=== PATIENT | female | born 1995 | race Caucasian/White ===

== ENCOUNTER 2020-09-17 10:07 | Inpatient (IN) | payer OTHER ==
--- OUTSIDE RECORDS SUMMARY | 2020-09-17 11:00 | XMS REPORT | Continuity of Care Document ---
:1995 Author Organization [facility] t Address [address] [place] [address] Care Team Providers Name Role Phone Unavailable Unavailable Unavailable Payers Payer Name Policy Type Policy Number Effective Date Expiration Date S ource Problems This patient has no known problems. Allergies, Adverse Reactions, Alerts Allergy Allergy Status Severity Reaction(s) Onset Inactive Treating Comm ents Source Name Type Date Date Clinician No Known DA Active U 2019-09 [facility] [place] Medications This patient has no known medications. Procedures This patient has no known procedures. Results Test Description Test Time Test Comments Results Result Comments Source GLUBED 2020-09-01 00:18:00 Test Item Value Reference Range Interpretation Comme nts GLUBED (test code = GLUBED) 92 mg/dL 65-110 N [id number] 12:27:00 Test Item Value Reference Range Interpretation Comments GLUBED (test code = GLUBED) 91 mg/dL 65-110 N [id number] 12:27:00 Test Item Value Reference Range Interpretation Comments GLUBED (test code = GLUBED) 123 mg/dL 65-110 H [id number] 02:01:00 Test Item Value Reference Range Interpretation Comments GLUBED (test code = GLUBED) 128 mg/dL 65-110 H COVID 19 Asymptomatic IH [id number] 17:59:00 Test Item Value Reference Range Interpretation Comments COVID 19 NEGATIVE NEGATIVE This test has b een Asymptomatic IH AG authorize d only for the (test code = detection ofpro teins from COVNONPUIAG) SARS-CoV-2, not for any other viruses orpathogens. N egative results should be treated as presumptive andconfirmed wi th a molecular assay , if necessary for patientmanageme nt. Negative result s do not rule out COVID- 19 andshould not b e used as the sole basis for treatment orpat ient management deci sions, including infec tion controldecision s. Negative result s should be considered i n thecontext of a patient's recent exposure s, history and thepresence of clinical signs and symptoms consis tent withCOVID-19. T his test has not been FD A cleared or approved; th e test hasbeen authori karishma by FDA under an Emerge ncy Use Authorization(E UA) for use by laborato lila certified under the CLIA thatmeet the re quirements to perform mode rate, high or waivedcomple xity tests. This soco t is authorized for use at thePoint of Car e (POC), i.e., in patien t care settingsoperati ng under a CLIA Certificat e of Waiver, Certifi pk ofCompliance, o r Certificate of Accreditation. This test is only authori zed for the duration of thedeclaration that circumstances e xist justifying theauthorizatio n of emergency use o f in vitro diagnostic test sfor detection and/o r diagnosis of CO VID-19 under Hxpslye08 4(b)(1) of the Act, 21 U.S .C. 360bbb-3(b)(1), unless theauthorizatio n is terminated or r evoked sooner. AG HEPATITIS B [id number] 17:48:00 Test Item Value Reference Range Interpretation Comments AG HEPATITIS B SURFACE (test code NONREACTIVE NONREACTIVE = HBSAG) IS CONSENT FORM SIGNED FOR HIV TESTING? YAB HEPATITIS C [id number] 17:48:00 Test Item Value Reference Range Interpretation Comments AB HEPATITIS C (test code = NONREACTIVE NONREACTIVE HCVAB) SIGNAL TO CUTOFF (test code = 0.06 <0.80 N CUTOFF) IS CONSENT FORM SIGNED FOR HIV TESTING? YAB [id number] 17:48:00 Test Item Value Reference Range Interpretation Comments AB TREPONEMA (test code = TREPAB) NONREACTIVE NONREACTIVE IS CONSENT FORM SIGNED FOR HIV TESTING? YAB HIV 1 17:48:00 Test Item Value Reference Range Interpretation Comments AB HIV 1 2 (test NONREACTIVE NONREACTIVE Done by Jeanna Cunningham code = [id number]) 4th Gen HIV Ag/Ab Combo Screen IS CONSENT FORM SIGNED FOR HIV TESTING? YAG HEPATITIS B [id number] 17:21:00 Test Item Value Reference Range Interpretation Comments AG HEPATITIS B SURFACE (test code NONREACTIVE NONREACTIVE = HBSAG) IS CONSENT FORM SIGNED FOR HIV TESTING? YAB HEPATITIS C [id number] 17:21:00 Test Item Value Reference Range Interpretation Comments AB HEPATITIS C (test code = HCVAB) NONREACTIVE SIGNAL TO CUTOFF (test code = CUTOFF) <0.80 IS CONSENT FORM SIGNED FOR HIV TESTING? YAB [id number] 17:21:00 Test Item Value Reference Range Interpretation Comments AB TREPONEMA (test code = TREPAB) NONREACTIVE NONREACTIVE IS CONSENT FORM SIGNED FOR HIV TESTING? YAB HIV 1 17:21:00 Test Item Value Reference Range Interpretation Comments AB HIV 1 2 (test code = [id number]) NONREACTIVE IS CONSENT FORM SIGNED FOR HIV TESTING? YCOMPREHENSIVE METABOLIC [id number] 16:47:00 Test Item Value Reference Range Interpretation Comments SODIUM (test code = NA) 136 mEq/L 135-145 N POTASSIUM (test code = K) 3.7 mEq/L 3.5-5.0 N CHLORIDE (test code = CL) 103 mEq/L 100-115 N CARBON DIOXIDE (test code = CO2) 26 mEq/L 22-31 N ANION GAP (test code = GAP) 10.60 10-20 N GLUCOSE (test code = GLU) 153 mg/dL 65-110 H BLOOD UREA NITROGEN (test code = 9 mg/dL 7-18 N BUN) GLOMERULAR FILTRATION RATE (test 102 ml/min >60 N code = GFR) CREATININE (test code = CREAT) 0.7 mg/dL 0.5-1.0 N TOTAL PROTEIN (test code = PROT) 6.1 gm/dL 6.3-8.2 L ALBUMIN (test code = ALB) 2.5 gm/dL 3.4-4.8 L CALCIUM (test code = CA) 8.9 mg/dL 8.4-10.2 N BILIRUBIN TOTAL (test code = BILT) 0.2 mg/dL 0.2-1.0 N SGOT/AST (test code = AST) 9 units/L 15-37 L SGPT/ALT (test code = ALT) 15 units/L 12-78 N ALKALINE PHOSPHATASE TOTAL (test 86 units/L 46-116 N code = ALKP) UR PROTEIN/CREATININE [id number] 16:43:00 Test Item Value Reference Range Interpretation Comments UR PROTEIN RANDOM (test code = 51.4 mg/dL PROTU) UR CREATININE RANDOM (test 232.3 mg/dL code = CREATU) PROTEIN/CREATININE RATIO (test 220.0 mg/gcrea <200 H code = P/CRATIO) CBC W/AUTO [id number] 16:16:00 Test Item Value Reference Range Interpretation Comments WHITE BLOOD CELL (test code = WBC) 9.5 K/mm3 6.6-12.1 N RED BLOOD CELL (test code = RBC) 3.83 M/mm3 3.45-5.01 N HEMOGLOBIN (test code = HGB) 11.2 g/dL 10.7-13.9 N HEMATOCRIT (test code = HCT) 34.6 % 32.1-42.1 N MEAN CELL VOLUME (test code = MCV) 90 fL 84.1-94.8 N MEAN CELL HGB (test code = MCH) 29.2 pg 27-35 N MEAN CELL HGB CONCETRATION (test 32.4 gm/dL 32.2-34.1 N code = MCHC) RED CELL DISTRIBUTION WIDTH (test 14.3 % 12.4-16.5 N code = RDW) PLATELET COUNT (test code = PLT) 232 K/mm3 133-385 N MEAN PLATELET VOLUME (test code = 11.1 fl 9.1-12.7 N MPV) NEUTROPHIL % (test code = NT%) 78.2 % 56.5-79.4 N LYMPHOCYTE % (test code = LY%) 12.6 % 14.3-34.3 L MONOCYTE % (test code = MO%) 7.8 % 5.1-10.4 N EOSINOPHIL % (test code = EO%) 0.3 % 0.1-3.0 N BASOPHIL % (test code = BA%) 0.1 % 0.1-1.0 N NEUTROPHIL # (test code = NT#) 7.4 K/mm3 LYMPHOCYTE # (test code = LY#) 1.2 K/mm3 MONOCYTE # (test code = MO#) 0.7 K/mm3 EOSINOPHIL # (test code = EO#) 0.03 K/mm3 BASOPHIL # (test code = BA#) 0.0 K/mm3 RBC MORPHOLOGY REQUIRED (test code NORMAL NORMAL = RBCM) PLATELET MORPHOLOGY REQUIRED (test NORMAL NORMAL code = PLTMR)
[2020-09-17 11:11] LABS: Basophils % 0.2 % (0-1.3); Hematocrit 34.6 % (36.0-45.0); Lymphocytes % 11.4 % (15.3-44.8); MPV 9.5 fL (7.6-11.3); RBC Red Blood Cell Count 3.99 M/uL (3.86-4.86)
[2020-09-17 11:15] LABS: Urine Appearance CLOUDY; Urine Bilirubin ND (NEG); Urine Blood 1+ (NEG); Urine Color YELLOW; Urine Glucose NEGATIVE (NEG); Urine Protein 3+ (NEG); Urine Specific Gravity >1.030 (1.005-1.030); Urine Urobilinogen 0.2 mg/dL (0.2-1.0); Urine pH 5.5 (5.0-7.0)
[2020-09-17 11:18] LABS: Urine Bacteria <20 /HPF (<20); Urine RBC <5 /HPF (NONE SEEN)
[2020-09-17 11:19] LABS: Urine Amorphous Sediment 2+ /HPF (NONE SEEN); Urine Mucus HEAVY /HPF (NONE SEEN)
[2020-09-17 11:25] LABS: ALT/SGPT 12 U/L (12-78); AST/SGOT 12 U/L (15-37); Albumin 2.2 g/dL (3.4-5.0); Alkaline Phosphatase 89 U/L (45-117); BUN Blood Urea Nitrogen 8 mg/dL (7-18); Bicarbonate 24 mmol/L (21-32); Bilirubin Total 0.3 mg/dL (0.2-1.0); Glucose Level 103 mg/dL (74-106); Potassium 3.8 mmol/L (3.5-5.1); Protein, Total 6.4 g/dL (6.4-8.2); Sodium Level 137 mmol/L (136-145)
[2020-09-17 11:43] LABS: Urine Protein/Creatinine Ratio 1.69 ratio (<0.15)
[2020-09-17] MEDS ORDERED: MAGNESIUM 50% 4 GM in NA CHLORIDE 0.9% 100 ML IV ONE (11:58)
[2020-09-17] MEDS ORDERED: Ringers Lactate 1,000 ML IV SCH (12:00)
[2020-09-17] MEDS ORDERED: Ringers Lactate 1,000 ML IV PRN (12:00)
[2020-09-17] MEDS ORDERED: CEFAZOLIN 2 GM in NA CHLORIDE 0.9% 100 ML IVPB ONE (12:08)
[2020-09-17 12:15] VITALS: BMI 38.5
[2020-09-17] MEDS ORDERED: CEFAZOLIN/SWI 2gm 2 GM/20 ML SYR ONE (12:35)
[2020-09-17] MEDS ORDERED: CARBOPROST TROME 250 MCG/ML IM ONE (12:41)
[2020-09-17] MEDS ORDERED: METOCLOPRAMIDE 10 MG/2mL INJ ONE (12:41)
[2020-09-17] MEDS ORDERED: NA CIT/CITRIC AC 30 ML ORAL UDC ONE (12:41)
[2020-09-17] MEDS ORDERED: FAMOTIDINE 20 MG/2 ML VIAL IV ONE ×2 (12:42→12:44)
[2020-09-17] MEDS ORDERED: MAGNESIUM SULF/STERILE WATER 1,000 ML IV SCH (13:00)
[2020-09-17] MEDS ORDERED: LIDOCAINE 1% MPF 5 ML VIAL ONE ×2 (14:10→14:25)
[2020-09-17] MEDS ORDERED: NS 0.9% VIAL 10 ML ONE (14:22)
[2020-09-17] MEDS ORDERED: FENTANYL CITR 250 MCG/5 ML ONE (14:25)
[2020-09-17] MEDS ORDERED: OXYTOCIN 10 UNIT/ML ML IV ONE ×2 (14:25→20:31)
[2020-09-17] MEDS ORDERED: BUPIVACAINE 0.75% (PF) 2 ML SP ONE (14:25)
[2020-09-17] MEDS ORDERED: MORPHINE SULFATE/PF 1 MG/ML (10 ML AMP) ONE (14:25)
[2020-09-17] MEDS ORDERED: LABETALOL 20 MG/4ML SYRINGE IV ONE (16:00)
--- NOTE | 2020-09-17 16:10 | OP ---
Surgeon: Mohamud Ramirez MD Indications For Procedure: A 25-year-old, 3, para 1, previous , at 36 weeks 4 days, chronic hypertension, now with superimposed preeclampsia and diabetes, seen in conjunction with Dr. Jama, high-high risk case manager, [facility]. Blood pressure in my office 162/110, +3 pr otein, +2 pretibial edema and the patient reports tingling of her fingers and hands. Reflexes brisk. Full preoperative counseling concerning procedure and possible complications including infection; b lood loss; anesthetic complications; injury to bladder, bowel, ureter; postoperative complications; c lots in legs; and pneumonia. The patient knows fully well it does not constitute all the possible pr oblems that could occur during or following surgery. Baby had Celestone and 2 injections 2 weeks nitza or to admission. Description Of Procedure: After spinal block anesthesia, the patient was prepped and draped and a ti me-out was performed. A Pfannenstiel incision was created over previous incision site. The incision was carried to the fascia. The fascia was incised and incision was carried transversely bilaterally . Anterior and posterior fascial planes were developed with both blunt and sharp dissection. Underl stuart rectus muscle was . Peritoneum entered. Low transverse bladder flap developed. Low t ransverse uterine incision created. A 7-pound and 1-ounce female delivered easily. Apgars 9 and 9. Cord blood specimen obtained. Placenta removed manually. Uterus cleared of clot and blood and exte riorized. Cervical os dilated with ring clamp. Uterus closed with a running lock stitch of 1 chromi c followed by a 5 [id number]-ip-bevxl stitches along the suture line for complete hemostasis. Uterus ghanshyam y thin in the left side. Estimated blood loss 750 cc or less. Gutters cleared of clot and blood. O ne peritoneal adhesion was removed from the right side of the uterus with fulguration. Inspection of suture line showed no further bleeding. Muscles were reapproximated using 2 stitches with 0 Vicryl. The fascia was closed with 1 PDS running from either angle to the midline. Subcutaneous tissue gladys sed with 2-0 plain. Emiliano used for the skin. The patient had been given 2 g of Ancef. Tolerated all procedures well. She had also been given 4 g of magnesium sulfate prior to the procedure and amandeep l be continued on this in the postoperative. Last blood pressure in the OR was 162/98 approximately. We will continue the magnesium sulfate until she diuresis. ANKUR/MODOg Voice ID: [id number] Report ID: [id number]
[2020-09-17] MEDS: LABETALOL 20 MG/4ML SYRINGE IV PRN (18:00)
[2020-09-17] MEDS ORDERED: KETOROLAC 30 MG/ML INJ IV PRN (18:58)
[2020-09-17] MEDS ORDERED: OXYTOCIN/LR 0 UNIT/0 ML BAG IV ONE (20:30)
[2020-09-17] MEDS ORDERED: D5LR 1,000 ML IV ONE (20:32)
[2020-09-17 21:30] LABS: Magnesium 4.6 mg/dL (1.8-2.4)
[2020-09-17] MEDS ORDERED: CEFAZOLIN/SWI 2gm 2 GM/20 ML SYR IVP ONE (22:00)
[2020-09-17 23:38] LABS: RPR (Rapid Plasma Reagin) NON-REACT (NON-REACT)
[2020-09-18] MEDS ORDERED: OXYTOCIN/LR 20 UNIT/1,000 ML BAG IV ONE (06:35)
[2020-09-18] MEDS ORDERED: INSULIN -REGULAR HUMAN 50 UNIT/0.5 ML ML SQ SCH (07:30)
[2020-09-18 08:00] VITALS: O2SAT 96
[2020-09-18] MEDS: LABETALOL 20 MG/4ML SYRINGE IV PRN (11:25)
[2020-09-18] MEDS: PHENOBARBITAL 32.4 MG TABLET PO SCH ×2 (11:43→20:02)
[2020-09-18] MEDS ORDERED: Oxycodone HCl/Acetaminophen 1 TAB TAB PO PRN (13:12)
[2020-09-18] MEDS: Oxycodone HCl/Acetaminophen 1 TAB TAB PO PRN ×2 (17:47→23:46)
[2020-09-19 01:48] VITALS: TEMP 98
[2020-09-19] MEDS: PHENOBARBITAL 32.4 MG TABLET PO SCH ×2 (04:12→12:08)
--- NOTE | 2020-09-19 08:16 | DS ---
Hospital Course: 25-year-old female, 36 weeks and 4 days followed antepartum in association with Dr. Jama, high-auto transmission specialist, noted to be diabetic and chronic hypertensive, on medications, lisinop ril. Prior to admission, this was changed to Aldomet. At 36 weeks and 4 days, patient became severe preeclamptic. Blood pressure in my office 179/110, +3 protein, 2+ to 3+ pretibial edema, brisk refl exes and tingling of the extremities. She is taken to surgery. Full preoperative counseling concern ing procedure and possible complications including infection, blood loss, anesthetic complications, i njury to bladder, bowel, and ureter; postoperative complications; clots in legs, and pneumonia. She was delivered of a 7 pounds 1 ounce female, Apgars 9 and 9. 750 cc or less blood loss. 2 g of Ancef prior to and 8 hours after surgery. Blood pressures have moderated since the surgery, but are still in the 150 systolic range. She was on magnesium sulfate. This has been discontinued and she has be en placed on phenobarbital. She is ambulating, voiding, request dismissal. We will let her go later this morning. I have given her tramadol for analgesia and we have continued the phenobarbital for 4 additional days. She knows this goes through the breast milk, but we will watch the baby carefully. Baby has developed what is probably transient tachypnea of the and may be transported, but that is being determined by her salesperson pianos and organs. The patient is COVID positive, nonimmune to rubella. This has been discussed and we will offer rubella immunization as well as Tdap and flu shot. Final Diagnoses: Intrauterine gestation, 36 weeks 4 days, chronic hypertension with superimposed sev ere preeclampsia, maternal diabetes, repeat section, spinal block anesthesia, COVID positive . NBC/MODL Voice ID: [id number] Report ID: [id number]
[2020-09-19] MEDS: Oxycodone HCl/Acetaminophen 1 TAB TAB PO PRN (08:20)
[2020-09-19] MEDS ORDERED: MEASLES,MUMPS,RUBELLA VAC 0.5ML SQVAC ONE (11:13)
[2020-09-19] MEDS ORDERED: Tdap (Diph,Pertuss(Acell),Tet Vac) 0.5 ML SYR IMVAC ONE ×2 (11:35→12:00)
[2020-09-19 13:11] VITALS: BP 158/92
[2020-09-19] MEDS ORDERED: Ringers Lactate 1,000 ML IV ONE (17:28)
[2020-09-21 05:09] LABS: HBsAG Nonreactive (Nonreactive)
--- NOTE | 2020-09-24 06:00 | PREOPHP ---
Date of Admission: 09/17/2020 History Of Present Illness: A 25-year-old 3, para 1, previous section, now at 36 we eks and in 4 days, has been seen in conjunction with Dr. Jama, high-credit risk management director in [facility] noted to have chronic hypertension, under treatment, Aldomet 500 mg 4 times a day, als o diabetes during the as well, came into my office today. Had a blood pressure of 162/110, +2 protein, +2 pretibial edema, and brisk reflexes. Has been reporting her hands and fingers have b een tingling. Sent to Labor and Delivery. Assessment has shown that indeed the patient now has supe rimposed pre-eclampsia. I have ordered 4 g loading dose of magnesium sulfate. The patient is being prepared for section at this time. Fetus is a girl and the patient has had Celestone. She knows this is not guarantee lung maturity, but we need to proceed at this point. Family History: Mother and maternal aunt with hypertension. Maternal aunt with diabetes. The patie nt has had a and D and C in 2013 following a spontaneous miscarriage. Medications: vitamins prior to admission as well as the Aldomet 4 times a day. Social History: Does not smoke. Physical Examination: HEENT: Clear pupils, equal, round, reactive to light accommodation. Conjunctivae well perfused. No oral, lingual, or buccal lesions. Chest/Lungs: Clear. Heart: Without murmurs, thrills, heaves, or rubs. Breasts: Not examined today but on the previous visit is negative. Abdomen: Very large. Baby is vertex. Extremities: With +2 edema and brisk reflexes. Assessment/plan: The patient is being stabilized at this point and then we will proceed with jeni henderson. She only had a couple of sips of water early this morning, nothing since then, basically n.p.o. The patient is Rh positive, nonimmune to rubella. This has been discussed with the patient. We will get her immunized before she leaves. ANKUR/YOMI Voice ID: [id number]
--- NOTE | 2020-09-24 06:03 | PN ---
Postoperatively, patient is doing quite well. H and H with minimal or no change. Magnesium level is in the therapeutic range. Output has been good, but patient has not started diuresing yet. She is only taking Toradol IV one time. No other analgesics. Full postop talk given. Patient reports she is hungry. We will go ahead and feed her this morning. Blood sugar this morning was 155, sliding sc devin says that we do not give the patient anything until it reaches 200 or above. The patient has her own glucometer and we will check her levels during the day. She has been on metformin and if her le vels exceed 200. She will go ahead and start taking her metformin again 500 mg once or twice a day. No post spinal block problems. She is nonimmune to Rubella and we will offer rubella immunization p sergior to dismissal. No complaints this morning, doing well. ANKUR/PHAML Voice ID: [id number] Report ID: [id number]
== END 2020-09-19 12:45 | disposition home or self-care (01) | DRG 786 ==
LOC: L&D 10:07 → 2ND-WC 11:31
PROVIDERS: ADMIT Specialist; ATTEND Specialist
PROC: 10907ZC Drainage of Amniotic Fluid, Therapeutic from Products of Conception, Via Natural or Artificial Opening (ICD-10-PCS; 2020-09-17)
PROC: 10D00Z1 Extraction of Products of Conception, Low, Open Approach (ICD-10-PCS; principal; 2020-09-17 13:30)
DX: O11.4 Pre-existing hypertension with pre-eclampsia, complicating childbirth (principal); U07.1 COVID-19; O98.52 Other viral diseases complicating childbirth; O34.211 Maternal care for low transverse scar from previous cesarean delivery; O99.824 Streptococcus B carrier state complicating childbirth; O24.429 Gestational diabetes mellitus in childbirth, unspecified control; Z3A.36 36 weeks gestation of pregnancy; Z37.0 Single live birth; Z23 Encounter for immunization
CPT/HCPCS: 36415; 80053; 81001; 82570; 82947; 83735; 84156; 84550; 85014; 85025; 86592; 86850; 86900; 86901; 87340; 88307; 90471; 90707; 90715; J0690; J2590; J2765; J3010; J3475; J7120; J7121; U0003